=== PATIENT | male | born 1995 | race Caucasian/White ===

== ENCOUNTER 2017-05-02 07:34 | Emergency (ER) | payer SELFPAY ==
[2017-05-02 08:40] VITALS: BP 118/72
== END 2017-05-02 08:40 | disposition home or self-care (01) ==
LOC: ED 07:34
DX: T16.1XXA Foreign body in right ear, initial encounter (principal); X58.XXXA Exposure to other specified factors, initial encounter; Y93.89 Activity, other specified; Y99.8 Other external cause status; Y92.89 Other specified places as the place of occurrence of the external cause

== ENCOUNTER 2017-08-29 22:17 | Emergency (ER) | payer MEDICAID ==
[2017-08-30 01:43] VITALS: BP 120/70
== END 2017-08-30 01:43 | disposition home or self-care (01) ==
LOC: ED 22:17
DX: F12.10 Cannabis abuse, uncomplicated (principal)
CPT/HCPCS: J2250; J2405; J7030

== ENCOUNTER 2017-09-01 21:56 | Emergency (ER) | payer MEDICAID ==
[2017-09-01 23:11] VITALS: BP 126/71
[2017-09-01 23:13] LABS: BASOPHIL % 0.4 % (0-2); PLATELET COUNT 271 x10^3mcL (130-400); RED CELL DISTRIBUTION WIDTH 12.8 % (11.5-14.5)
[2017-09-01 23:15] LABS: CALCIUM 8.9 mg/dL (8.5-10.1); CARBON DIOXIDE 31.6 mmol/L (21-32); CHLORIDE SERUM 104 mmol/L (98-107); CREATININE SERUM 1.2 mg/dL (0.7-1.3); GFR1 > 60 mL/min; GLUCOSE SERUM 129 mg/dL (74-106); POTASSIUM SERUM 3.5 mmol/L (3.5-5.1); SODIUM SERUM 142 mmol/L (136-145)
[2017-09-01 23:27] LABS: ALBUMIN 4.4 g/dL (3.4-5.0); ALKALINE PHOSPHATASE 54 U/L (46-116); ALT/SGPT 22 U/L (16-63); AST/SGOT 14 U/L (15-37); BILIRUBIN TOTAL 0.34 mg/dL (0.20-1.00); TOTAL PROTEIN, SERUM 7.8 g/dL (6.4-8.2)
== END 2017-09-02 00:01 | disposition home or self-care (01) ==
LOC: ED 21:56
PROVIDERS: Emergency Medicine
DX: R00.2 Palpitations (principal)
CPT/HCPCS: 36415

== ENCOUNTER 2017-11-13 10:50 | Emergency (ER) | payer SELFPAY ==
[~2017-11-13] VITALS: Ht 170.2 cm; Wt 66.7 kg
[2017-11-13 10:55] VITALS: Ht 170.2 cm; Wt 66.7 kg
[2017-11-13 11:26] LABS: microscopic required? NO
[2017-11-13 11:37] LABS: urine erythrocyte NEGATIVE (NEGATIVE)
[2017-11-13 11:46] LABS: BASOPHIL % 0.3 % (0-2); PLATELET COUNT 254 x10^3mcL (130-400); RED CELL DISTRIBUTION WIDTH 12.9 % (11.5-14.5)
[2017-11-13 11:55] LABS: CALCIUM 9.1 mg/dL (8.5-10.1); CARBON DIOXIDE 26.5 mmol/L (21-32); CHLORIDE SERUM 100 mmol/L (98-107); CREATININE SERUM 1.2 mg/dL (0.7-1.3); GFR1 > 60 mL/min; GLUCOSE SERUM 142 mg/dL (74-106); POTASSIUM SERUM 3.7 mmol/L (3.5-5.1); SODIUM SERUM 139 mmol/L (136-145)
[2017-11-13 12:02] LABS: AMPHETAMINE QUAL UR NONE DETECTED (NEG <=1000)
[2017-11-13 12:05] LABS: ALBUMIN 4.5 g/dL (3.4-5.0); ALKALINE PHOSPHATASE 55 U/L (46-116); ALT/SGPT 25 U/L (16-63); AMYLASE 61 U/L (25-115); AST/SGOT 14 U/L (15-37); BILIRUBIN TOTAL 0.5 mg/dL (0.20-1.00); CHOLESTEROL 136 mg/dL (<200); HDL CHOLESTEROL 43 mg/dL (40-60); LIPASE 67 IU/L (73-393); TOTAL PROTEIN, SERUM 7.7 g/dL (6.4-8.2)
[2017-11-13 13:18] VITALS: BP 117/66
== END 2017-11-13 14:44 | disposition home or self-care (01) ==
LOC: ED 10:50
PROVIDERS: Emergency Medicine
DX: K59.00 Constipation, unspecified (principal); F41.1 Generalized anxiety disorder; F12.90 Cannabis use, unspecified, uncomplicated
CPT/HCPCS: 83880; J1630; J2060; J7030

== ENCOUNTER 2017-11-14 00:47 | Emergency (ER) | payer SELFPAY ==
[~2017-11-14] VITALS: Ht 170.2 cm; Wt 65.8 kg
[2017-11-14 00:51] VITALS: Ht 170.2 cm; Wt 65.8 kg
[2017-11-14 01:32] VITALS: BP 110/67
== END 2017-11-14 01:32 | disposition home or self-care (01) ==
LOC: ED 00:47
DX: R10.9 Unspecified abdominal pain (principal); R11.2 Nausea with vomiting, unspecified; F41.9 Anxiety disorder, unspecified; F12.90 Cannabis use, unspecified, uncomplicated

== ENCOUNTER 2017-11-17 02:52 | Emergency (ER) | payer SELFPAY ==
[~2017-11-17] VITALS: Ht 170.2 cm; Wt 64.9 kg
[2017-11-17 03:04] VITALS: Ht 170.2 cm; Wt 64.9 kg
[2017-11-17 05:16] VITALS: BP 121/79
== END 2017-11-17 05:16 | disposition home or self-care (01) ==
LOC: ED 02:52
DX: R07.89 Other chest pain (principal); R00.2 Palpitations; F41.9 Anxiety disorder, unspecified

== ENCOUNTER 2017-11-18 22:49 | Emergency (ER) | payer SELFPAY ==
[~2017-11-18] VITALS: Ht 170.2 cm; Wt 64.9 kg
[2017-11-18 23:16] VITALS: Ht 170.2 cm; Wt 64.9 kg
[2017-11-19 00:24] VITALS: BP 122/67
== END 2017-11-19 00:25 | disposition home or self-care (01) ==
LOC: ED 22:49
DX: R07.2 Precordial pain (principal); F41.1 Generalized anxiety disorder; R00.2 Palpitations

== ENCOUNTER 2017-11-22 17:50 | Emergency (ER) | payer SELFPAY ==
[~2017-11-22] VITALS: Ht 170.2 cm; Wt 64.9 kg
[2017-11-22 17:55] VITALS: Ht 170.2 cm; Wt 64.9 kg
[2017-11-22 21:15] VITALS: BP 121/77
== END 2017-11-22 21:15 | disposition home or self-care (01) ==
LOC: ED 17:50
DX: F41.9 Anxiety disorder, unspecified (principal)

== ENCOUNTER 2017-11-23 20:24 | Emergency (ER) | payer SELFPAY ==
[~2017-11-23] VITALS: Ht 170.2 cm; Wt 64.5 kg
[2017-11-23 20:56] VITALS: BP 113/71; Ht 170.2 cm; Wt 64.5 kg
== END 2017-11-24 | disposition home or self-care (01) ==
LOC: ED 20:24
DX: T40.7X5A Adverse effect of cannabis (derivatives), initial encounter (principal); F32.9 Major depressive disorder, single episode, unspecified; Y92.89 Other specified places as the place of occurrence of the external cause